=== PATIENT | female | born 1975 | race Caucasian/White ===

== ENCOUNTER 2018-03-13 19:49 | Emergency (ER) | payer OTHER ==
[2018-03-13] MEDS: DIPH,PERTUSS(ACELL),TET VAC/PF 0.5 ML DISP.SYRIN IM ONE (20:04)
--- NOTE | 2018-03-13 20:08 | ED Physician Documentation ---
General Adult - HISTORIAN Historian: patient, spouse - HPI Stated Complaint: First finger laceration Chief Complaint: General Adult Additional Information: Cut finger with serrated kitchen knife just prior to coming to ER. Unknown last tetanus. No associated signs and no modifying factors. - ROS CONST: no problems - PAST HX Past History: other (hypothyroid) Allergies/Adverse Reactions: Allergies Allergy/AdvReac Type Severity Reaction Status Date / Time No Known Allergies Allergy Unverified 03/13/18 19:57 Home Medications: Ambulatory Orders Medication Instructions Recorded Etonogestrel/Ethinyl Estradiol 1 applic VG MONTH 03/13/18 [Nuvaring Vaginal Ring] Folic Acid [Folvite] 1 mg PO DAILY 03/13/18 Levothyroxine Sodium [Synthroid] 75 mcg PO DAILY 03/13/18 Metformin HCl [Metformin HCl ER] 500 mg PO DAILY 03/13/18 - SOCIAL HX Smoking History: non-smoker - FAMILY HX Family History: No (no signif) - VITAL SIGNS Vital Signs: Vital Signs Temp Pulse Resp BP Pulse Ox 98.5 F 76 16 117/73 96 03/13/18 19:52 03/13/18 19:52 03/13/18 19:52 03/13/18 19:52 03/13/18 19:52 - REVIEWED ASSESSMENTS Nursing Assessment Reviewed: Yes Vitals Reviewed: Yes ED Results Lab/Radiology - Orders Orders: ED Orders Category Date Time Status Apply occlusive dressing D Care 03/13/18 19:58 Ordered Cleanse with NS and Chlorhexid 1T Care 03/13/18 19:58 Ordered Finger Splint 1T Care 03/13/18 19:58 Ordered Diph,Pertuss(Acell),Tet Vac/Pf [Adacel] Med 03/13/18 19:58 Once 0.5 ml IM .ONCE ONE Neomycin/Bacitracin/Polymyxinb [Triple Antibiotic Med 03/13/18 19:58 Once Ointment] 1 each TP NOW ONE General Adult Physical Exam - PHYSICAL EXAM GENERAL APPEARANCE: mild distress EENT: eye inspection normal, ENT inspection normal NECK: normal inspection RESPIRATORY: no resp distress BACK: other (werect posture) SKIN: warm/dry, normal color, other (1 cm lac palmar suraface left index finger , prox phalanx. no active bleeding, Superficial) EXTREMITIES: non-tender, normal range of motion, no evidence of injury NEURO: CN's nml as tested, motor nml, cognition normal Discharge Clincal Impression: Finger laceration Referrals: Primary Doctor,No [Primary Care Provider] - 2 Days Condition: Good Disposition: 01 HOME, SELF-CARE Decision to Admit: NO Decision Time: 20:07
[2018-03-13] MEDS: NEOMYCIN/BACITRACIN/POLYMYXINB 1 EACH OINT.PACK TP ONE (20:15)
[2018-03-13 20:19] VITALS: BP 117/73
== END 2018-03-13 20:15 | disposition home or self-care (01) ==
LOC: ED 19:49
DX: S61.211A Laceration without foreign body of left index finger without damage to nail, initial encounter (principal); W26.0XXA Contact with knife, initial encounter; Y92.9 Unspecified place or not applicable; Y93.9 Activity, unspecified; Y99.9 Unspecified external cause status
CPT/HCPCS: 90471; 90715